=== PATIENT | male | born 1990 | race Caucasian/White ===

== ENCOUNTER 2018-03-22 02:28 | Emergency (ER) | payer SELFPAY ==
[~2018-03-22] VITALS: Ht 177.8 cm; Wt 100.8 kg
[~2018-03-22 02:28] MED LIST: DENIES
[2018-03-22 02:34] VITALS: Ht 177.8 cm; Wt 100.8 kg
[2018-03-22] MEDS ORDERED: KETOROLAC 30 MG INJ IM STA (03:33)
[2018-03-22] MEDS ORDERED: ACET500C5 PO (05:37)
[2018-03-22] MEDS ORDERED: IBUP-1542 PO (05:37)
[2018-03-22] MEDS ORDERED: METH750T93 PO (05:37)
[2018-03-22 05:56] VITALS: BP 126/81; PULSE 65; RESP 18
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
== END 2018-03-22 05:57 | disposition home or self-care (01) ==
LOC: FTE 02:28
DX: M25.512 Pain in left shoulder (principal); M79.622 Pain in left upper arm; M25.532 Pain in left wrist; F17.210 Nicotine dependence, cigarettes, uncomplicated
CPT/HCPCS: 72100; 72170; 73060; 73090; 73110; 96372; 99284; J1885